=== PATIENT | male | born 1970 | race Caucasian/White ===

== ENCOUNTER 2021-08-04 12:24 | Emergency (ER) | payer OTHER ==
[2021-08-04 12:40] VITALS: TEMP 98.6; BMI 45.1
[2021-08-04] MEDS ORDERED: ASPIRIN 81 MG CHEWABLE TABLETS PO ONE (14:08)
[2021-08-04] MEDS ORDERED: ASPIRIN 81 MG CHEWABLE TABLETS ONE (14:27)
[2021-08-04 14:42] LABS: BASO % 0.3 % (0-2.0); EOS % 0.9 % (0-4.5); HEMATOCRIT 44.6 % (35.4-49); LYMPH % 23.7 % (8-40); MCH 28.8 pg (25.7-33.7); MCHC 33.7 g/dl (32.0-35.9); MEAN CELL VOLUME 85.4 fl (80-96); MONO % 12.4 % (3.8-10.2); NEUT % 62.7 % (42.8-82.8); PLATELET COUNT 176 10^3/uL (134-434); RBC 5.22 M/mm3 (4.00-5.60); RDW 13.7 % (11.9-15.9); WHITE BLOOD COUNT 3.4 K/mm3 (4.0-10.0)
[2021-08-04 15:08] LABS: ALBUMIN 4.1 g/dl (3.4-5.0); MAGNESIUM 2.5 mg/dL (1.8-2.4)
[2021-08-04 15:09] LABS: BLOOD UREA NITROGEN 8.9 mg/dL (7-18)
[2021-08-04 15:11] LABS: CREATININE 0.9 mg/dL (0.55-1.3)
[2021-08-04 15:13] LABS: BILIRUBIN,TOTAL 0.6 mg/dL (0.2-1); TOT PROT 7.3 g/dl (6.4-8.2)
[2021-08-04] MEDS ORDERED: AMOX TR/POT CLAV 875MG/125MG TABLETS (FP) PO ONE (18:26)
[2021-08-04] MEDS ORDERED: AMOX TR/POT CLAV 875MG/125MG TABLETS (FP) ONE (18:37)
[2021-08-04 18:43] VITALS: BP 125/76; PULSE 72
== END 2021-08-04 19:11 | disposition home or self-care (01) ==
LOC: JER 12:24
DX: R07.9 Chest pain, unspecified (principal)
CPT/HCPCS: 36415; 71045-TC-FY; 71275-TC; 74174-TC; 80053; 83735; 84484; 85025; 93005; 93010; 99285-25; Q9967